=== PATIENT | male | born 1945 | race Caucasian/White ===

== ENCOUNTER → 2021-04-22 09:01 | Outpatient (CLI) | payer MEDICARE, SELFPAY ==
--- NOTE | ~2021-04-22 | MR_ITS ---
EXAMINATION: MR lumbar spine wo con DATE: 04/22/2021 10:23 INDICATION: Low back pain. TECHNIQUE: Magnetic resonance imaging (MRI) of the lumbar spine was performed without intravenous con trast. Sequences included sagittal T2-weighted FSE, sagittal T2-weighted FS FSE, sagittal T1-weighted FSE, and axial T2-weighted FSE. COMPARISON: Lumbar spine MRI 05/16/2013 FINDINGS: There is 22 degrees dextroscoliosis of lumbar spine. There is 3 mm retrolisthesis of L2 on L3 and L3 on L4 and 5 mm anterolisthesis of L4 on L5. There is severely decreased disc height from L1 -L2 through L5-S1 with endplate remodeling. The distal spinal cord signal intensity is normal. The co nus medullaris is at T12. There is a 9.2 x 4.6 x 5.3 cm subcutaneous cystic mass superficial to the l umbar spine at the midline with thick low-signal wall and thick septations, likely a chronic hematoma . The following disc levels are specifically discussed: L1-L2: The disc is bulging and has an annular fissure. 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 There is moderate bilateral neural foraminal stenosis. There is mild central ca nal stenosis. L2-L3: The disc is bulging and has an annular fissure. There is severe right and moderate left facet joint osteoarthritis. There is moderate bilateral neural foraminal stenosis. There is mild central ca nal stenosis with posterior decompression. L3-L4: The disc does not extend beyond the endplate margin. There is severe bilateral facet joint ost eoarthritis. There is moderate right and severe left neural foraminal stenosis. There is mild central canal stenosis with posterior decompression. L4-L5: The disc is bulging and has an annular fissure. There is severe right facet joint osteoarthrit is. There is ankylosis of left facet joint with severe hypertrophy. There is moderate bilateral neura l foraminal stenosis. There is mild central canal stenosis with posterior decompression. L5-S1: The disc is bulging and has an annular fissure. There is severe left facet joint osteoarthriti s. There is ankylosis of right facet joint with severe hypertrophy. There is moderate bilateral neura l foraminal stenosis. There is mild central canal stenosis with posterior decompression. IMPRESSION: 1. Severe lumbar spondylosis, worsened from 05/16/2013 with interval laminectomies. 2. 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 Reviewed, dictated and finalized at location A. [employer] [employer] IMPRESSION: 1. Severe lumbar spondylosis, worsened from 05/16/2013 with interval laminectomi es. 2. 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
== END ==
PROVIDERS: PCP Internal Medicine
DX: M47.896 Other spondylosis, lumbar region (principal)
CPT/HCPCS: 72148